=== PATIENT | female | born 1975 | race Hispanic/Latino ===

== ENCOUNTER 2022-12-12 10:26 | Inpatient (IN) | payer OTHER ==
--- NOTE | 2022-12-12 10:45 | P.HP ---
Date of Service: 12/12/22 Chief complaint: Abdominal pain History of present Illness: 47-year-old female who presented to [facility] with acute onset of epigastric and right upper quadrant abdominal pain associated with nausea, vomiting, bloating, belching and heartburn. Pain is postprandial in nature. Patient had a chili dog last night. Patient had similar episodes in the past. Patient denies any sore throat, no runny nose, cough, headaches, dizziness, chest pain, fever or chills. Review of systems: Otherwise unremarkable Past medical history: Negative Past surgical history: hysterectomy Allergies: None Social history: Does not smoke, drinks occasionally Family history: Breast cancer in the mother Vital signs: Stable, afebrile Physical exam: Awake, alert and oriented x3 Head and neck: No masses, no icterus, no JVD, throat clear and neck supple Chest: Clear Heart: S1-S2 Abdomen: Soft, nondistended, tenderness in the right upper quadrant with no peritonitis and positive bowel sounds Diagnostic data: CT of the abdomen pelvis as well as the ultrasound reviewed. Both indicate evidence of acute cholecystitis and cholelithiasis. White count is 10.9 and LFTs are normal. Assessment: Acute cholecystitis and cholelithiasis Plan/recommendation: Admit, n.p.o., IV fluids, IV antibiotics. To the OR for laparoscopic cholecystectomy possible open. Patient understands risk, benefits and alternatives and agrees to procedure. CC:
[2022-12-12] MEDS ORDERED: Ringers Lactate 1,000 ML IV ONE ×2 (10:55→13:46)
[2022-12-12] MEDS ORDERED: CEFOXITIN SODIUM 1 GM/VIAL ONE (10:56)
[2022-12-12] MEDS ORDERED: propofoL 200 MG/20 ML VIAL IV ONE (11:44)
[2022-12-12] MEDS ORDERED: FENTANYL CITR 100 MCG/2 ML ONE ×4 (11:45→13:32)
[2022-12-12] MEDS ORDERED: LIDOCAINE 2% MPF 5 ML VIAL ONE (11:45)
[2022-12-12] MEDS ORDERED: ROCURONIUM 50 MG/5 ML VIAL IV ONE (11:45)
[2022-12-12] MEDS ORDERED: MIDAZOLAM HCL 2 MG/2 ML INJ ONE (12:00)
[2022-12-12] MEDS ORDERED: ONDANSETRON 4 MG/2 ML VIAL ONE ×2 (12:08→13:25)
[2022-12-12] MEDS ORDERED: dexAMETHasone 10 MG/ML VIAL ONE (12:08)
--- NOTE | 2022-12-12 12:26 | P.OP ---
Date of Service: 12/12/22 Preop diagnosis: Acute cholecystitis and cholelithiasis Postop diagnosis: Same Procedure performed: Laparoscopic cholecystectomy Surgeon: Curt Iniguez MD Legal Consultant: Madeleine STONE Estimated blood loss: Minimal Specimen: Gallbladder Findings: As above Anesthesia: General Complications: None Drains: None Fluids and blood products: Nonapplicable Disposition: Recovery room Operative note: Patient brought to the OR and placed in supine position. General anesthesia begun. Patient prepped and draped in the usual sterile fashion. [place] 0.5% infiltrated locally. 15 blade used to make a 1 cm supraumbilical midline incision. Subcutaneous tissue divided. Bleeding controlled cautery. Fascia identified and divided. #1 Vicryl stay suture placed. Peritoneal cavity entered with sharp and blunt dissection. 12 mm trocar placed into the peritoneal cavity under direct vision. Laparoscopy revealed acute cholecystitis. Three 5 mm trocars placed. 1 trocar placed in the epigastric region just to the right of midline. 2 trocars placed in the right subcostal region. Fundus identified and retracted superiorly. I nfundibulum identified and retracted inferolaterally. Cystic duct and cystic artery clearly identified with blunt dissection. Clips placed and both structures divided. Cautery used to remove the gallbladder from the liver bed. Gallbladder retrieved through the umbilicus via Endo Catch bag. Right upper quadrant irrigated. No evidence of bleeding or bile leakage appreciated. Subsequently all trocars removed under direct vision. Stay sutures tied to each other to reapproximate the fascial defect. Subcutaneous wounds irrigated. Bleeding controlled cautery. 3-0 chromic used to approximate subcutaneous tissue and close skin. Sterile dressing applied. Patient awakened and taken to recovery room in good general condition. CC:
[2022-12-12] MEDS ORDERED: ONDANSETRON 4 MG/2 ML VIAL IV PRN (12:27)
[2022-12-12] MEDS ORDERED: HYDROMORPHONE HCL 1 MG/ML INJ IV PRN (12:27)
[2022-12-12] MEDS ORDERED: NEOSTIGMINE 1 MG/ML -10 ML VIAL ONE (12:30)
[2022-12-12] MEDS ORDERED: GLYCOPYRROLATE 0.2 MG/ML SYR ONE ×2 (12:31)
[2022-12-12] MEDS ORDERED: KETOROLAC 30 MG/ML INJ ONE (12:33)
[2022-12-12] MEDS: Ringers Lactate 1,000 ML IV SCH ×2 (13:00→19:16)
[2022-12-12] MEDS ORDERED: HYDROMORPHONE HCL 1 MG/ML INJ ONE ×2 (13:13→13:22)
[2022-12-12 14:35] VITALS: BMI 29.2
[2022-12-12] MEDS ORDERED: INFLUENZA VACCINE (for 6+ mo) 0.5 ML DOSE IMVAC ONE (15:00)
[2022-12-12] MEDS: PIPER TAZO 3.375 GM in NA CHLORIDE 0.9% 100 ML IV SCH (17:18)
[2022-12-12] MEDS: HYDROCODONE/APAP 7.5/325 MG TAB PO PRN (17:18)
[2022-12-13] MEDS: PIPER TAZO 3.375 GM in NA CHLORIDE 0.9% 100 ML IV SCH ×3 (00:51→16:15)
[2022-12-13 04:40] LABS: Absolute Lymphocytes (CBC) 1.7 K/uL (0.7-4.9); Hematocrit 42.8 % (36.0-45.0); Lymphocytes % 8.8 % (15.3-44.8); MCV 91.8 fL (80-100); MPV 7.6 fL (7.6-11.3); Platelets 304 thou/uL (152-406); RBC Red Blood Cell Count 4.66 M/uL (3.86-4.86)
[2022-12-13] MEDS: Ringers Lactate 1,000 ML IV SCH ×3 (07:42→23:51)
[2022-12-13] MEDS: HYDROCODONE/APAP 7.5/325 MG TAB PO PRN ×3 (07:46→19:59)
[2022-12-13 12:43] LABS: Absolute Lymphocytes (CBC) 2.3 K/uL (0.7-4.9); Hematocrit 38.6 % (36.0-45.0); Lymphocytes % 11.6 % (15.3-44.8); MCV 90.8 fL (80-100); MPV 7.5 fL (7.6-11.3); Platelets 280 thou/uL (152-406); RBC Red Blood Cell Count 4.25 M/uL (3.86-4.86)
--- NOTE | 2022-12-13 18:53 | DS ---
Date of Discharge: 12/13/2022 Admitting Diagnoses: Acute cholecystitis and cholelithiasis. Discharge Diagnoses: Acute cholecystitis and cholelithiasis. Procedure Performed: Laparoscopic cholecystectomy. Hospital Course: Patient is a 47-year-old female, underwent the cholecystectomy yesterday. Today, s he is doing very well, tolerating diet, ambulating, pain controlled on p.o. pain medication, and the patient is afebrile. However, her white count is 19.6. Therefore, the CBC will be repeated at lunch time and then if white count is coming down, patient will be discharged home on antibiotics and pain medicine. Disposition: Home. Condition: Stable. Discharge Instructions: Resume home medications and diet. Activity as tolerated. No heavy lifting. Remove outer dressing tomorrow and shower. Keep Steri-Strips on at all times. Follow up in my off ice in 1 week. Call for appointment. [place] 7.5 one tablet p.o. q.4 p.r.n. pain, Colace 100 mg p.o. b.i.d., and Cipro 500 mg p.o. b.i.d. /MODL Voice ID: [id number] Report ID: [id number]
[2022-12-13 20:19] VITALS: O2SAT 98
[2022-12-14] MEDS: PIPER TAZO 3.375 GM in NA CHLORIDE 0.9% 100 ML IV SCH ×2 (00:46→07:54)
[2022-12-14] MEDS: HYDROCODONE/APAP 7.5/325 MG TAB PO PRN ×2 (01:15→09:29)
[2022-12-14 04:32] LABS: Absolute Lymphocytes (CBC) 3.1 K/uL (0.7-4.9); Hematocrit 36.3 % (36.0-45.0); MCV 92.6 fL (80-100); MPV 7.8 fL (7.6-11.3); Platelets 237 thou/uL (152-406); RBC Red Blood Cell Count 3.92 M/uL (3.86-4.86)
[2022-12-14 08:32] VITALS: BP 114/66; TEMP 97.4
--- NOTE | 2022-12-14 13:01 | DS ---
Date of Discharge: 12/14/2022 Addendum: Patient is clinically doing well. Today, her white count is down to 12,000. Therefore, luis manuel will will be discharged home with previous instructions and antibiotics. All instructions given. Please note, patient's repeat white count yesterday, however, was 19,000. That is why, she was kept an extra day for IV antibiotics. CLAUDIO/SUDHIR Voice ID: [id number] Report ID: [id number]
== END 2022-12-14 09:55 | disposition home or self-care (01) | DRG 419 ==
LOC: 4TH 10:26
PROVIDERS: ADMIT Surgery; ATTEND Surgery
PROC: 0FT44ZZ Resection of Gallbladder, Percutaneous Endoscopic Approach (ICD-10-PCS; principal; 2022-12-12 12:45)
DX: K80.00 Calculus of gallbladder with acute cholecystitis without obstruction (principal); Z90.710 Acquired absence of both cervix and uterus
CPT/HCPCS: 36415; 85025; 88304; 94010; J0694; J1100; J1170; J2001; J2250; J2405; J2543; J2704; J2710; J3010; J7120